=== PATIENT | female | born 1965 | race Caucasian/White ===

== ENCOUNTER 2019-02-17 08:41 | Day surgery (SDC) | payer BC ==
[~2019-02-17] VITALS: Ht 152.4 cm; Wt 63.3 kg
[2019-02-17 09:49] VITALS: Ht 152.4 cm; Wt 63.3 kg
[2019-02-17 09:50] VITALS: BP 109/53; PULSE 58; RESP 22
[2019-02-17] MEDS ORDERED: NO MEDICATIONS (09:52)
[2019-02-17] MEDS ORDERED: MIDAZOLAM 1 MG/ML 2 ML INJ ONE (11:17)
[2019-02-17] MEDS ORDERED: FENTAnyl 50 MCG/ML VIAL ONE (11:17)
== END 2019-02-17 11:50 | disposition home or self-care (01) ==
LOC: GIL 08:41
PROVIDERS: ATTEND Internal Medicine Gastroenterology
DX: Z12.11 Encounter for screening for malignant neoplasm of colon (principal); K64.8 Other hemorrhoids
CPT/HCPCS: 45378; 84703; J2250; J3010; Z7610